=== PATIENT | female | born 1995 | race Hispanic/Latino ===

== ENCOUNTER 2016-05-30 21:43 | Emergency (ER) | payer OTHER ==
[~2016-05-30] VITALS: Ht 157.5 cm; Wt 71.8 kg
[2016-05-30 21:45] VITALS: BP 111/61; PULSE 78; RESP 16; O2SAT 100
[2016-05-30 22:43] LABS: BASOPHILS % (AUTO) 0.2 % (0-3); EOSINOPHILS % (AUTO) 0.3 % (0-5); MONOCYTES % (AUTO) 3.6 % (4-12); Mean Corpuscular Hemoglobin 30.1 pg (27.0-35.0); Mean Corpuscular Volume 85.2 fL (81-100); NEUTROPHILS % (AUTO) 77.6 % (40-74); Platelet Count 294 bil/L (150-400)
[2016-05-30 23:07] LABS: Magnesium 1.7 mg/dL (1.6-2.6)
--- NOTE | 2016-05-30 23:26 | ED.REPORT ---
HPI-Abd Pain F Under 40 Date of Service May 30, 2016 ED Provider: Tobias Sanchez MD Patient is a 21 year old female who presents to the ED complaining of worsening lower abdominal pain that began 2 days ago. Her pain is constant and cramping. The patient reports that her pain is similar to what she experienced previously while in high school, but states that it always went away after several hours. She admits to nausea but denies dysuria, diarrhea, bloody or tarry stools, constipation, or vomiting. The patient had a surgery for pyloric stenosis as a baby. The patient started taking control pills recently and is concerned that this could cause her symptoms. The patient also reports having frequent heartburn. Nursing Notes Stated Complaint: ABDOMINAL PAIN Chief Complaint: Female Abdominal Pain Nursing Notes Reviewed: Yes Allergies: Coded Allergies: No Known Allergies (Unverified , 05/30/16) Scheduled Famotidine (Pepcid) 20 Mg Tablet 20 MG PO BID General Time Seen by MD: 23:25 Chief Complaint Abdominal pain Hx Obtained From: Patient Arrived By: Walk-in Sudden in Onset?: No Onset Occurred: 2 days ago Symptom Duration: Since onset Progression since Onset: Gradually worsening Location: : Abdomen lower Quality: Painful Severity: Current: Moderate Severity: Maximum: Moderate Recent Healthcare: No recent doctor visit, No recent hospitalization Similar Sx Previous: Yes Past Medical History Past Medical History acid reflux Past Surgical History pyloric stenosis Smoking History Unknown if Ever Smoker Social History Other Social History: Good social support, Local resident Ambulatory Status Independent Review of Systems GI: Reports: Abdominal pain, Nausea, Denies: Bloody/tarry stool, Constipation, Diarrhea, Vomiting Female: Denies: Dysuria, Hematuria Complete sys rev & neg: except as marked. Physical Exam Physical Exam Notes: Initial Vital Signs Vital Signs (First) Date Time Temp Pulse Resp B/P Pulse Ox O2 Delivery O2 Flow Rate FiO2 05/30/16 21:45 36.0 78 16 111/61 100 Room Air Initial VS: Reviewed Head / Eyes: Atraumatic, Normocephalic, PERRL ENT: Conjunctiva normal, No scleral icterus Neck: Supple, Full range of motion Extremities: Vascular intact, Neuro intact, No swelling Skin: Warm, Dry, No cyanosis Neurologic: Alert, Oriented, Nonfocal Psychiatric: Mood/affect normal, Behavior normal, Normal thought content General/Constitutional: Awake, Alert, No acute distress Respiratory / Chest: Breath sounds NL, Breath sounds = bilat, No respiratory distress, No rales, No rhonchi, No wheezing Cardiovascular: Heart rate NL, Regular rhythm, Heart sounds NL, No murmurs Abdomen: Soft Tenderness/Guarding/Rebound: Positive: Tender diffuse (mild) transverse scar left upper quadrant consistent with infantile surgery for pyloric stenosis Back: No midline vertebral tend, No CVA tenderness Interpretation & Diagnostics Lab Results Interpretation Result Diagram: 05/30/16223305/30/162233 Test 05/30/16 22:34 05/30/16 22:50 White Blood Count 10.8th/mm3 (3.8-10.1) Red Blood Count 4.39mil/mm3 (3.90-5.20) Hemoglobin 13.2g/dL (12.0-15.6) Hematocrit 37.4% (35.0-46.0) Mean Corpuscular Volume 85.2fL (81-100) Mean Corpuscular Hemoglobin 30.1pg (27.0-35.0) Mean Corpuscular Hemoglobin Concent 35.3% (32.0-37.0) Red Cell Distribution Width 12.6% (12.3-15.4) Platelet Count 294bil/L (150-400) Neutrophils (%) (Auto) 77.6% (40-74) Lymphocytes (%) (Auto) 18.1% (14-46) Monocytes (%) (Auto) 3.6% (4-12) Eosinophils (%) (Auto) 0.3% (0-5) Basophils (%) (Auto) 0.2% (0-3) Sodium Level 135mEq/L (134-144) Potassium Level 3.8mEq/L (3.5-5.2) Chloride Level 100mEq/L (97-108) Carbon Dioxide Level 20mmol/L (18-29) Blood Urea Nitrogen 10mg/dL (6-20) Creatinine 0.53mg/dL (0.57-1.00) Estimat Glomerular Filtration Rate 209mL/min (>59) Glucose Level 98mg/dL (60-99) Calcium Level 9.2mg/dL (8.5-10.1) Magnesium Level 1.7mg/dL (1.6-2.6) Total Bilirubin 0.4mg/dL (0.0-1.2) Aspartate Amino Transf (AST/SGOT) 16U/L (0-50) Alanine Aminotransferase (ALT/SGPT) 14U/L (0-32) Alkaline Phosphatase 101U/L (25-150) Total Protein 8.0g/dL (6.4-8.4) Albumin 4.0g/dL (3.4-5.0) Lipase 23U/L (13-60) Hold Rosales Top Tube Received (Received) Urine Color Yellow (YELLOW) Urine Appearance Clear (CLEAR,HAZY) Urine pH 6.0 (5.0-8.0) Urine Specific [place] 1.030 (1.003-1.035) Urine Protein Negativemg/dL (NEG,TRACE) Urine Glucose (UA) Negativemg/dL (NEGATIVE) Urine Ketones Tracemg/dL (NEGATIVE) Urine Occult Blood Negative (NEGATIVE) Urine Nitrite Negative (NEGATIVE) Urine Bilirubin Negative (NEGATIVE) Urine Urobilinogen Normalmg/dL (NORMAL) Urine Leukocyte Esterase Negative (NEGATIVE) Urine RBC 0-2/hpf (0-2) Urine WBC 6-10/hpf (0-5) Urine Epithelial Cells Moderate/hpf (NONE-MOD) Urine Crystals None seen (NONE SEEN) Urine Bacteria Few/hpf (NONE-FEW) Urine Hyaline Casts None/lpf (NONE) Urine Granular Casts None seen (NONE SEEN) Urine Waxy Casts None seen (NONE SEEN) Urine Red Blood Cell Casts None seen (NONE SEEN) Urine White Blood Cell Casts None seen (NONE SEEN) Urine Mucus None seen (None Seen) Urine Trichomonas None seen (NONE SEEN) Urine Yeast None (NONE SEEN) Urine Culture Reflexed Indicated Hold Urine Received (Received) X-Ray Abdominal Interpretation Impression: Constipation. Interpretation / Wet Read by: Wet read ED physician Re-Eval/Medical Decision Med Decision/Clinical Course Med Decision/Clinical Course: 21-year-old female presents with crampy left upper quadrant abdominal pain. Only finding on evaluation is significant constipation on plain film. No evidence of obstruction. Labs are reassuring. Begun with milk of magnesia and Dulcolax suppository for home use. Metamucil to follow. Follow-up with PCP. Re-Evaluation/Progress : Time of Eval: 00:36 Re-Evaluation/Progress Note: X-ray is consistent with constipation. Patient understands and agrees with the plan to be discharged home. Discharge instructions and follow-up discussed. All questions were addressed. Return to the ED warnings given. Counseled Regarding: Diagnosis, Lab results, Need for follow-up, When/why to return to ED Discharge & Departure Primary Impression: Constipation Constipation type: unspecified constipation type Qualified Code: K59.00 - Constipation, unspecified Disposition: Home Discharge Condition All VS Reviewed: Yes Condition: Stable Patient Instructions: Constipation (ED) Additional Instructions: We do not see any evidence of OBSTRUCTION or any other serious issue on your x- ray or lab. You do have a significant amount of stool in your colon, all the way from right to left, and this is likely associated with your pain. I suggest you take 2 tablespoons of milk of magnesia nightly for three nights. Begin Metamucil three capsules daily or one scoop daily in cool fluid. Additionally, your heartburn can be treated with Pepcid twice daily. Follow-up with your doctor in the office. Return if any immediate issues. Referrals: [facility] (PCP) Aishaibe Attestation Portions of this note were transcribed by Annette Winn. I, Dr. Sanchez personally performed the history, physical exam and medical decision-making; I reviewed and confirmed the accuracy of the information in the transcribed note. Signed by: Jose Carlos Canales, 05/31/2016 0039 copies to: [facility] Christopher W MD May 30, 2016 23:26 Annette Winn May 30, 2016 23:38
[2016-05-31] MEDS ORDERED: Magnesium Hydroxide 10 mL Oral Concentration PO ONE (00:15)
[2016-05-31 00:31] LABS: APPEARANCE,URINE CLEAR (CLEAR,HAZY); COLOR,URINE YELLOW (YELLOW); OCCULT BLOOD,URINE NEGATIVE (NEGATIVE); UROBILINOGEN,URINE NORMAL (NORMAL)
[2016-05-31] MEDS ORDERED: FAMO20T PO (00:31)
[2016-05-31 00:47] VITALS: BP 116/73; PULSE 85; RESP 16; O2SAT 100
--- NOTE | 2016-05-31 08:04 | DRSVH ---
PROCEDURE: X-RAY ABDOMEN WITH ERECT AND/OR DECUBITUS VIEWS ([id number]) INDICATIONS: luq pain, nausea TECHNIQUE: 2 views of the abdomen were acquired. COMPARISON: None. FINDINGS: Surgical changes and devices: None. Bowel: No pneumoperitoneum. The bowel gas pattern shows mild gaseous distention of the splenic flex ure. There is moderate stool in the proximal colon. The distal colon is decompressed. No small bowel dilatation. Soft tissues: No masses; visualized solid organ contours appear normal in size. No suspicious abdom inal calcifications. Bones: No suspicious bony abnormalities. IMPRESSION: Nonspecific bowel pattern with mild dilatation of the splenic flexure. Dictated by: Richard Bermudez M.D. on 05/31/2016 at 8:01 Approved by: Richard Bermudez M.D. on 05/31/2016 at 8:03
== END 2016-05-31 00:40 | disposition home or self-care (01) ==
LOC: SED 21:43
DX: K59.00 Constipation, unspecified (principal); K21.9 Gastro-esophageal reflux disease without esophagitis